=== PATIENT | female | born 1950 | race Caucasian/White ===

== ENCOUNTER → 2020-10-10 | Outpatient (CLI) | payer MEDICARE, OTHER ==
[~2020-10-10] MED LIST: ANTIVERT 25MG T25 MG PO; ASPIRIN CHEWABL81 MG PO; CLEOCIN 150MG150 MG PO; ESTRACE1 MG PO; KLONOPIN1 MG PO; LODINE CAP 300300 MG PO; NITROSTAT0.4 MG SL; NORCO 10-325 T1 EACH PO; OMEPRAZOLE40 MG PO; PREDNISONE10 MG PO; PROAMATINE 2.52.5 MG PO; REMICADE I100 MG/VIA INJ; REQUIP0.5 MG PO; SYNTHROID100 MCG PO; TAMBOCOR 100 M100 MG PO; VITAMIN D32000 UNI1 PO; ZOFRAN ODT 4 MG4 MG PO
== END ==
LOC: HEART 5 12:44
DX: R06.02 Shortness of breath (principal); I47.1 Supraventricular tachycardia; I95.1 Orthostatic hypotension; I08.1 Rheumatic disorders of both mitral and tricuspid valves
CPT/HCPCS: 93306

== ENCOUNTER → 2020-10-24 | Outpatient (CLI) | payer MEDICARE, OTHER | LOC: US 13:14 | DX: R42 Dizziness and giddiness (principal); R53.83 Other fatigue; R55 Syncope and collapse; I65.23 Occlusion and stenosis of bilateral carotid arteries | CPT/HCPCS: 93880 ==